=== PATIENT | male | born 1955 | race Caucasian/White ===

== ENCOUNTER 2018-02-07 10:15 | Outpatient (CLI) | payer BC ==
--- NOTE | 2018-02-07 11:19 | ULT ---
ABDOMINAL ULTRASOUND: Date: 02-07-18 History: Right upper quadrant pain. FINDINGS: There is increased echogenic material seen dependently within the gallbladder lumen likely related to sludge. No gallbladder calculi are seen. There is no gallbladder wall thickening or pericholecystic fluid. The common duct is at the upper limits of normal in size. The majority of the pancreas is obscured by bowel gas. The visualized portions of the IVC and abdomin al aorta, liver, spleen, and bilateral kidneys demonstrate a normal sonographic appearance. The right kidney measures 10.7 cm in length with the left kidney measuring 12.2 cm in length. IMPRESSION: Gallbladder sludge without gallbladder calculi visualized. POS: [facility]
== END 2018-02-07 10:16 | disposition home or self-care (01) ==
LOC: SCSULT 10:15
PROVIDERS: ATTEND Internal Medicine Gastroenterology
DX: Z12.11 Encounter for screening for malignant neoplasm of colon (principal); Z00.00 Encounter for general adult medical examination without abnormal findings; K21.9 Gastro-esophageal reflux disease without esophagitis; K82.8 Other specified diseases of gallbladder
CPT/HCPCS: 76700